=== PATIENT | male | born 1975 | race Caucasian/White ===

== ENCOUNTER 2022-06-21 06:56 | Emergency (ER) | payer OTHER ==
[~2022-06-21] VITALS: Ht 170.2 cm; Wt 77.1 kg
[2022-06-21] MEDS ORDERED: SULF1TAB47 PO (07:16)
[2022-06-21] MEDS ORDERED: CEPH500C2 PO (07:16)
[2022-06-21] MEDS ORDERED: SULFAMETH/TRIMETH 800/160 MG 1 UDTAB TABLET PO ONE (07:30)
[2022-06-21] MEDS ORDERED: CEFTRIAXONE 1 G VIAL IM ONE (07:30)
[2022-06-21] MEDS ORDERED: CEFTRIAXONE 1 G VIAL ONE (07:33)
[2022-06-21] MEDS ORDERED: SULFAMETH/TRIMETH 800/160 MG 1 UDTAB TABLET ONE (07:34)
--- NOTE | 2022-06-21 07:34 | NUR ---
ROCEPHIN GIVEN LEFT DELTOID IM
--- NOTE | 2022-06-21 07:45 | NUR ---
Patient discharged to home in stable condition. Written and verbal after care instructions given. Patient verbalizes understanding of instruction.
[2022-06-21 08:00] VITALS: BP 139/82
== END 2022-06-21 08:03 | disposition home or self-care (01) ==
LOC: ER 06:58
DX: L03.116 Cellulitis of left lower limb (principal); I10 Essential (primary) hypertension; Z91.013 Allergy to seafood
CPT/HCPCS: 99283; 96372; J0696